=== PATIENT | female | born 1935 | race Hispanic/Latino ===

== ENCOUNTER 2019-07-27 10:53 | Emergency (ER) | payer OTHER, MEDICARE ==
[2019-07-27] MEDS ORDERED: KETOROLAC TROMETHAMINE 15MG/ML ONE (11:13)
[2019-07-27 11:40] LABS: CREATININE 0.9 mg/dL (0.5-1.5)
[2019-07-27 11:45] LABS: ALBUMIN 3.8 g/dL (3.5-5.0); BILIRUBIN,TOTAL 0.4 mg/dL (0.2-1.0); TOTAL PROTEIN, SERUM 7.2 g/dL (6.0-8.3)
[2019-07-27 12:04] LABS: BASOPHILS % (AUTO) 1.1 % (0.0-5.0); EOSINOPHILS % (AUTO) 2.8 % (0.0-8.0); HEMATOCRIT 43.7 % (36-48); LYMPHOCYTES % (AUTO) 27.2 % (21.0-51.0); MEAN CORPUSCULAR HEMOGLOBIN 28.7 pg (27.0-33.0); MEAN CORPUSCULAR HGB CONC 32.3 g/dL (32.0-36.0); MONOCYTES % (AUTO) 7.5 % (3.0-13.0); NEUTROPHILS % (AUTO) 61.2 % (40.0-77.0); PLATELET COUNT (AUTO) 222 K/uL (130-400); RED BLOOD CELL COUNT(AUTO) 4.91 MIL/uL (4.00-5.50); RED CELL DISTRIBUTION WIDTH 13.1 % (11.0-15.5); WHITE BLOOD COUNT (AUTO) 5.3 K/uL (4.8-10.8)
[2019-07-27 12:22] LABS: PARTIAL THROMBOPLASTIN TIME 29.8 SEC (26.3-35.5); PROTHROMBIN TIME 10.5 SEC (9.6-11.6)
== END 2019-07-27 13:14 | disposition home or self-care (01) ==
LOC: EDH 10:53
DX: S29.012A Strain of muscle and tendon of back wall of thorax, initial encounter (principal); E11.9 Type 2 diabetes mellitus without complications; E78.00 Pure hypercholesterolemia, unspecified; I10 Essential (primary) hypertension; I48.91 Unspecified atrial fibrillation; Z90.49 Acquired absence of other specified parts of digestive tract; Z90.710 Acquired absence of both cervix and uterus; Z88.5 Allergy status to narcotic agent; X58.XXXA Exposure to other specified factors, initial encounter; Y93.89 Activity, other specified; Y92.89 Other specified places as the place of occurrence of the external cause; Y99.8 Other external cause status
CPT/HCPCS: 36415; 71045; 80053; 82550; 84484; 85025; 85610; 85730; 93005; 96374; 99285; J1885

== ENCOUNTER 2020-09-02 15:57 | Inpatient (IN) | payer MEDICARE ==
[2020-09-02 16:21] LABS: BASOPHILS % (AUTO) 0.6 % (0.0-5.0); EOSINOPHILS % (AUTO) 3.4 % (0.0-8.0); HEMATOCRIT 43.7 % (36-48); LYMPHOCYTES % (AUTO) 14.3 % (21.0-51.0); MEAN CORPUSCULAR HEMOGLOBIN 28.7 pg (27.0-33.0); MEAN CORPUSCULAR VOLUME 87.1 fL (79-99); MONOCYTES % (AUTO) 7.9 % (3.0-13.0); NEUTROPHILS % (AUTO) 73.6 % (40.0-77.0); PLATELET COUNT (AUTO) 213 K/uL (130-400); RED BLOOD CELL COUNT(AUTO) 5.02 MIL/uL (4.00-5.50); RED CELL DISTRIBUTION WIDTH 13.4 % (11.0-15.5); WHITE BLOOD COUNT (AUTO) 9.3 K/uL (4.8-10.8)
[2020-09-02 16:45] LABS: CREATININE 1.1 mg/dL (0.5-1.5); POTASSIUM 4.1 mmol/L (3.5-5.1)
[2020-09-02 16:48] LABS: INR 1.04 (0.85-1.15); PROTHROMBIN TIME 11.3 SEC (9.6-11.6)
[2020-09-02 16:49] LABS: PARTIAL THROMBOPLASTIN TIME 32.8 SEC (26.3-35.5)
[2020-09-02 16:50] LABS: ALBUMIN 4.1 g/dL (3.5-5.0); BILIRUBIN,TOTAL 0.7 mg/dL (0.2-1.0); TOTAL PROTEIN, SERUM 7.8 g/dL (6.0-8.3)
[2020-09-02 18:16] LABS: APPEARANCE,URINE Clear (CLEAR); BILIRUBIN,URINE Negative (NEGATIVE); COLOR,URINE Yellow (YELLOW); GLUCOSE, URINE (UA) Negative (NEGATIVE); KETONES,URINE Negative (NEGATIVE); LEUKOCYTE ESTERASE ,URINE Moderate (NEGATIVE); NITRATE,URINE Negative (NEGATIVE); OCCULT BLOOD,URINE Negative (NEGATIVE); PROTEIN,URINE Negative (NEGATIVE)
[2020-09-02 19:07] LABS: BACTERIA,URINE Few /HPF (None Seen); MUCUS,URINE Rare LPF (None Seen); SQUAMOUS EPITHELIAL CELL,UR 0-2 /HPF (0-2)
[2020-09-03 04:45] LABS: HEMATOCRIT 42.6 % (36-48); MEAN CORPUSCULAR HEMOGLOBIN 28.2 pg (27.0-33.0); MEAN CORPUSCULAR HGB CONC 31.5 g/dL (32.0-36.0); MEAN CORPUSCULAR VOLUME 89.5 fL (79-99); RED BLOOD CELL COUNT(AUTO) 4.76 MIL/uL (4.00-5.50); RED CELL DISTRIBUTION WIDTH 13.5 % (11.0-15.5); WHITE BLOOD COUNT (AUTO) 6.8 K/uL (4.8-10.8)
[2020-09-03] MEDS ORDERED: DEXTROSE 50%-WATER 50 ML DISP.SYRIN IV PRN (04:45)
[2020-09-03] MEDS ORDERED: GLUCAGON 1MG KIT 1 MG ML IM PRN (04:45)
[2020-09-03] MEDS ORDERED: ONDANSETRON 4MG INJ IVP PRN (04:45)
[2020-09-03 04:57] LABS: MAGNESIUM 1.9 mg/dL (1.80-2.40); POTASSIUM 3.6 mmol/L (3.5-5.1)
[2020-09-03] MEDS ORDERED: AMIODARONE 900MG VIAL 150 MG in DEXTROSE 5%-WATER 100 ML IV SCH (05:15)
[2020-09-03] MEDS ORDERED: AMIODARONE 900MG VIAL IV ONE (05:27)
[2020-09-03] MEDS ORDERED: AMIODARONE 150MG VIAL ONE (05:28)
[2020-09-03] MEDS ORDERED: 0.9%NACL 100ML 100 ML IV ONE (05:28)
[2020-09-03] MEDS ORDERED: 0.9%NACL 50ML 50 ML IV ONE (05:29)
[2020-09-03] MEDS ORDERED: 0.9% NACL 250ML 250 ML IV ONE (05:31)
[2020-09-03] MEDS ORDERED: 0.9% NACL 500ML IV.SOLN 500 ML IV ONE (05:36)
[2020-09-03] MEDS: INSULIN R PO SS1 SQ SCH ×4 (06:16→21:42)
[2020-09-03 08:00] VITALS: BP 124/72
[2020-09-03] MEDS: APIXABAN 5 MG TABLET PO SCH ×2 (08:16→20:03)
[2020-09-03] MEDS ORDERED: FUROSEMIDE 20MG VIAL IV SCH ×2 (10:15→18:00)
[2020-09-03] MEDS ORDERED: DILTIAZEM 50MG VIAL IV SCH (10:15)
[2020-09-03] MEDS: DILTIAZEM 60MG TAB PO SCH ×4 (10:29→23:50)
[2020-09-03] MEDS: KCL 20 MEQ ERTAB PO SCH ×2 (10:29→20:03)
[2020-09-03] MEDS: DILTIAZEM 125 MG/25 ML INJ 125 MG in 0.9%NACL 100ML 100 ML IV SCH ×2 (11:25→14:53)
[2020-09-03 12:00] VITALS: BP 10/66
[2020-09-03] MEDS: CEFTRIAXONE 1G VIAL IVP SCH (14:06)
[2020-09-03] MEDS: AMIODARONE 900MG VIAL 900 MG in DEXTROSE 5%-WATER 500 ML IV SCH (14:52)
[2020-09-03 16:00] VITALS: BP 128/66
[2020-09-03 20:00] VITALS: BP 142/68
[2020-09-03] MEDS: ACETAMINOPHEN 325 MG TAB PO PRN (20:04)
[2020-09-03 23:48] VITALS: BP 124/62
[2020-09-04 04:33] VITALS: BP 119/65
[2020-09-04] MEDS: DILTIAZEM 60MG TAB PO SCH ×3 (05:53→18:25)
[2020-09-04] MEDS: INSULIN R PO SS1 SQ SCH ×4 (05:53→20:47)
[2020-09-04 08:00] VITALS: BP 140/71
[2020-09-04] MEDS: APIXABAN 5 MG TABLET PO SCH ×2 (08:42→20:47)
[2020-09-04] MEDS: ACETAMINOPHEN 325 MG TAB PO PRN (09:24)
[2020-09-04 12:06] VITALS: BP 124/64
[2020-09-04] MEDS: CEFTRIAXONE 1G VIAL IVP SCH (12:31)
[2020-09-04] MEDS ORDERED: DILT240T3 PO (13:30)
[2020-09-04] MEDS ORDERED: LOSA100T58 PO (13:30)
[2020-09-04] MEDS ORDERED: APIX5TAB PO (13:30)
[2020-09-04] MEDS ORDERED: METF-444 PO (13:30)
[2020-09-04] MEDS ORDERED: MIRA25TA PO (13:30)
[2020-09-04] MEDS ORDERED: TRAZ-187 PO (13:30)
[2020-09-04] MEDS ORDERED: ATOR40TA69 PO (13:30)
[2020-09-04 16:00] VITALS: BP 126/56
[2020-09-04 20:00] VITALS: BP 143/63
[2020-09-05] VITALS: BP 141/56
[2020-09-05] MEDS: DILTIAZEM 60MG TAB PO SCH ×4 (00:11→18:18)
[2020-09-05] MEDS: ACETAMINOPHEN 325 MG TAB PO PRN ×2 (00:13→10:02)
[2020-09-05 04:00] VITALS: BP 139/52
[2020-09-05] MEDS: INSULIN R PO SS1 SQ SCH ×4 (06:17→20:40)
[2020-09-05 07:57] VITALS: BP 141/82
[2020-09-05] MEDS: APIXABAN 5 MG TABLET PO SCH ×2 (08:23→20:26)
[2020-09-05 10:27] LABS: HEMATOCRIT 44.5 % (36-48); MEAN CORPUSCULAR HEMOGLOBIN 28.5 pg (27.0-33.0); MEAN CORPUSCULAR HGB CONC 32.4 g/dL (32.0-36.0); MEAN CORPUSCULAR VOLUME 87.9 fL (79-99); PLATELET COUNT (AUTO) 216 K/uL (130-400); RED BLOOD CELL COUNT(AUTO) 5.06 MIL/uL (4.00-5.50); RED CELL DISTRIBUTION WIDTH 13.5 % (11.0-15.5); WHITE BLOOD COUNT (AUTO) 7.5 K/uL (4.8-10.8)
[2020-09-05] MEDS ORDERED: AMIODARONE 900MG VIAL 450 MG in DEXTROSE 5%-WATER 250 ML IV SCH (10:33)
[2020-09-05 10:36] LABS: CREATININE 0.8 mg/dL (0.5-1.5); POTASSIUM 4.2 mmol/L (3.5-5.1)
[2020-09-05 10:41] LABS: ALBUMIN 3.4 g/dL (3.5-5.0); BILIRUBIN,TOTAL 0.3 mg/dL (0.2-1.0); TOTAL PROTEIN, SERUM 7.3 g/dL (6.0-8.3)
[2020-09-05 11:12] LABS: EOSINOPHILS % (MANUAL) 3 % (1-6); LYMPHOCYTES % (MANUAL) 24 % (22-44); MAN.DIFF COMMENT-IMPRESSION MANUAL DIFFERENTIAL; MONOCYTES % (MANUAL) 6 % (2-9); SEGMENTED NEUTROPHILS % 67 % (40-70)
[2020-09-05 11:13] LABS: PLATELET MORPHOLOGY COMMENT ADEQUATE
[2020-09-05 11:32] VITALS: BP 122/57
[2020-09-05] MEDS: CEFTRIAXONE 1G VIAL IVP SCH (13:09)
[2020-09-05 16:00] VITALS: BP 139/79
[2020-09-05 19:00] VITALS: BP 133/72
[2020-09-06] MEDS: DILTIAZEM 60MG TAB PO SCH ×2 (00:05→05:53)
[2020-09-06 00:26] VITALS: BP 130/75
[2020-09-06 03:45] VITALS: BP 130/74
[2020-09-06] MEDS: AMIODARONE 900MG VIAL 900 MG in DEXTROSE 5%-WATER 500 ML IV SCH (06:01)
[2020-09-06] MEDS: INSULIN R PO SS1 SQ SCH ×4 (06:46→20:48)
[2020-09-06 08:23] VITALS: BP 158/84
[2020-09-06] MEDS: APIXABAN 5 MG TABLET PO SCH ×2 (10:28→20:07)
[2020-09-06] MEDS: AMIODARONE 200 MG TABLET PO SCH ×2 (10:29→20:07)
[2020-09-06] MEDS: DILTIAZEM 120MG SR CAP PO SCH (10:29)
[2020-09-06 12:04] VITALS: BP 120/53
[2020-09-06] MEDS: CEFTRIAXONE 1G VIAL IVP SCH (14:57)
[2020-09-06 16:00] VITALS: BP 155/68
[2020-09-06 19:32] VITALS: BP 130/64
[2020-09-07] MEDS: ACETAMINOPHEN 325 MG TAB PO PRN ×2 (00:27→13:49)
[2020-09-07 05:06] LABS: HEMATOCRIT 42.8 % (36-48); MEAN CORPUSCULAR HEMOGLOBIN 28.3 pg (27.0-33.0); MEAN CORPUSCULAR HGB CONC 32.9 g/dL (32.0-36.0); MEAN CORPUSCULAR VOLUME 85.8 fL (79-99); RED BLOOD CELL COUNT(AUTO) 4.99 MIL/uL (4.00-5.50); RED CELL DISTRIBUTION WIDTH 13.2 % (11.0-15.5); WHITE BLOOD COUNT (AUTO) 8.4 K/uL (4.8-10.8)
[2020-09-07 05:21] LABS: CREATININE 1.1 mg/dL (0.5-1.5); MAGNESIUM 2.1 mg/dL (1.80-2.40); POTASSIUM 4.2 mmol/L (3.5-5.1)
[2020-09-07 06:11] VITALS: BP 133/67
[2020-09-07] MEDS: INSULIN R PO SS1 SQ SCH (07:30)
[2020-09-07 07:37] VITALS: BP 129/58
[2020-09-07] MEDS: APIXABAN 5 MG TABLET PO SCH (11:15)
[2020-09-07] MEDS: DILTIAZEM 120MG SR CAP PO SCH (11:15)
[2020-09-07] MEDS: AMIODARONE 200 MG TABLET PO SCH (11:15)
[2020-09-07 11:24] VITALS: BP 126/66
== END 2020-09-07 15:10 | disposition home or self-care (01) | DRG 309 ==
LOC: EDH 15:57 → EDHIP 18:30 → 4CH 09-03 03:49
PROVIDERS: ADMIT Internal Medicine Infectious Disease; ATTEND Internal Medicine Infectious Disease
DX: I48.0 Paroxysmal atrial fibrillation (principal); N39.0 Urinary tract infection, site not specified; I48.20 Chronic atrial fibrillation, unspecified; I25.10 Atherosclerotic heart disease of native coronary artery without angina pectoris; E78.5 Hyperlipidemia, unspecified; I44.7 Left bundle-branch block, unspecified; E11.51 Type 2 diabetes mellitus with diabetic peripheral angiopathy without gangrene; F32.9 Major depressive disorder, single episode, unspecified; I35.0 Nonrheumatic aortic (valve) stenosis; R53.81 Other malaise; I11.9 Hypertensive heart disease without heart failure; Z79.01 Long term (current) use of anticoagulants; Z79.899 Other long term (current) drug therapy; Z83.3 Family history of diabetes mellitus; Z95.5 Presence of coronary angioplasty implant and graft; Z88.5 Allergy status to narcotic agent
CPT/HCPCS: 36415; 71045; 80048; 80053; 81001; 82948; 83735; 83880; 84443; 84484; 85025; 85027; 85610; 85730; 87088; 93005; 99291; G0378; J0282; J0696; J1815; J1940; J2405; J3490; J7040; J7050; J7060

== ENCOUNTER 2021-05-14 14:37 | Emergency (ER) | payer MEDICARE ==
[~2021-05-14] VITALS: Ht 157.5 cm; Wt 78.0 kg
[~2021-05-14 14:37] MED LIST: APIX5TAB PO; ATOR40TA69 PO; DILT240T3 PO; LOSA100T58 PO; METF-444 PO; MIRA25TA PO; TRAZ-187 PO
[2021-05-14 14:56] LABS: BASOPHILS % (AUTO) 0.6 % (0.0-5.0); EOSINOPHILS % (AUTO) 1.9 % (0.0-8.0); LYMPHOCYTES % (AUTO) 21.4 % (21.0-51.0); MEAN CORPUSCULAR HEMOGLOBIN 27.5 pg (27.0-33.0); MEAN CORPUSCULAR HGB CONC 31.7 g/dL (32.0-36.0); MONOCYTES % (AUTO) 8.4 % (3.0-13.0); NEUTROPHILS % (AUTO) 67.4 % (40.0-77.0); PLATELET COUNT (AUTO) 205 K/uL (130-400); RED BLOOD CELL COUNT(AUTO) 4.83 MIL/uL (4.00-5.50); RED CELL DISTRIBUTION WIDTH 14.8 % (11.0-15.5); WHITE BLOOD COUNT (AUTO) 7.7 K/uL (4.8-10.8)
[2021-05-14 15:08] LABS: CREATININE 1.1 mg/dL (0.5-1.5); POTASSIUM 4.4 mmol/L (3.5-5.1)
[2021-05-14 15:12] LABS: ALBUMIN 3.8 g/dL (3.5-5.0); BILIRUBIN,TOTAL 0.4 mg/dL (0.2-1.0); MAGNESIUM 2.3 mg/dL (1.80-2.40); TOTAL PROTEIN, SERUM 7.8 g/dL (6.0-8.3)
[2021-05-14 15:14] LABS: INR 0.98 (0.85-1.15); PROTHROMBIN TIME 10.7 SEC (9.6-11.6)
[2021-05-14 15:16] LABS: PARTIAL THROMBOPLASTIN TIME 27.9 SEC (26.3-35.5)
[2021-05-14 16:15] LABS: APPEARANCE,URINE Clear (CLEAR); BILIRUBIN,URINE Negative (NEGATIVE); COLOR,URINE Yellow (YELLOW); GLUCOSE, URINE (UA) Negative (NEGATIVE); KETONES,URINE Negative (NEGATIVE); LEUKOCYTE ESTERASE ,URINE Moderate (NEGATIVE); NITRATE,URINE Negative (NEGATIVE); OCCULT BLOOD,URINE Negative (NEGATIVE); PH,URINE 6.5 (5.0-8.0); PROTEIN,URINE Negative (NEGATIVE)
[2021-05-14 16:21] LABS: BACTERIA,URINE Rare /HPF (None Seen); RBC,URINE 0-1 /HPF (0-1); SQUAMOUS EPITHELIAL CELL,UR Few /HPF (0-2)
[2021-05-14 16:22] LABS: TRANSITIONAL EPI CELLS,URINE Rare /HPF (None Seen)
[2021-05-14] MEDS ORDERED: CEPHALEXIN 500 MG CAPSULE ONE (16:54)
[2021-05-14 17:00] VITALS: BP 178/72
[2021-05-14] MEDS ORDERED: CEPHALEXIN 500 MG CAPSULE PO ONE (17:00)
[2021-05-14] MEDS ORDERED: CEPH500B PO (17:01)
== END 2021-05-14 17:19 | disposition home or self-care (01) ==
LOC: EDH 14:37
DX: N39.0 Urinary tract infection, site not specified (principal); R53.1 Weakness; E11.9 Type 2 diabetes mellitus without complications; E78.00 Pure hypercholesterolemia, unspecified; I10 Essential (primary) hypertension; Z95.0 Presence of cardiac pacemaker; Z88.5 Allergy status to narcotic agent; Z79.84 Long term (current) use of oral hypoglycemic drugs; Z79.899 Other long term (current) drug therapy; Z79.01 Long term (current) use of anticoagulants
CPT/HCPCS: 36415; 70450; 72125; 72170; 80053; 81001; 83735; 84484; 85025; 85610; 85730; 87088; 93005